=== PATIENT | female | born 1960 ===

== ENCOUNTER → 2017-06-08 | Outpatient (REF) | payer OTHER | LOC: M LAB REF 13:18 | DX: L91.8 Other hypertrophic disorders of the skin (principal) ==

== ENCOUNTER → 2021-07-31 | Outpatient (REF) | payer OTHER ==
[2021-07-31 18:57] LABS: MALB URINE SIEMENS 27.2 MG/L; MAU/CREAT RATIO 25.4 MCG/MG (0.0-30.0)
== END ==
LOC: M LAB REF 17:24
PROVIDERS: ATTEND Nurse Practitioner Family
DX: E11.65 Type 2 diabetes mellitus with hyperglycemia (principal)